=== PATIENT | male | born 1960 | race Caucasian/White ===

== ENCOUNTER 2020-06-23 13:49 | Emergency (ER) | payer OTHER ==
[~2020-06-23] VITALS: Ht 180.3 cm; Wt 99.8 kg
[2020-06-23] MEDS ORDERED: TOPROL XL25 M1 PO (14:18)
[2020-06-23] MEDS ORDERED: ZESTRIL10 M1 PO (14:18)
[2020-06-23] MEDS ORDERED: TAMS0.4C PO (14:19)
[2020-06-23] MEDS ORDERED: FINASTERIDE5 MG PO (14:19)
[2020-06-23] MEDS ORDERED: CIPRO500 MG PO (20:03)
== END 2020-06-23 20:30 | disposition home or self-care (01) ==
LOC: ER 13:49
DX: R31.0 Gross hematuria (principal)